=== PATIENT | male | born 1935 | race Caucasian/White ===

== ENCOUNTER 2016-07-05 07:17 | Inpatient (IN) | payer MEDICARE, OTHER ==
[2016-07-05] MEDS ORDERED: ceFAZolin 2 GM/50 ML 50 ML IV ONE (07:24)
[2016-07-05] MEDS ORDERED: LACTATED RINGERS 1,000 ML IV ONE ×3 (08:22→12:56)
[2016-07-05] MEDS ORDERED: NALBUPHINE 20 MG/ML AMP IVP PRN ×2 (09:08→15:26)
[2016-07-05] MEDS ORDERED: ONDANSETRON 4 MG/2 ML VIAL IVP PRN ×3 (09:08→15:26)
[2016-07-05] MEDS ORDERED: SUFENTA/BUPIV 0.4 MCG/0.0625% EPIDURAL 150 ML EP PRN (09:08)
[2016-07-05] MEDS ORDERED: diphenhydrAMINE INJ 50 MG/ML VIAL IVP PRN ×2 (09:08→15:26)
[2016-07-05] MEDS ORDERED: ePHEDrine 50 MG/ML AMP IVP ONE (09:30)
[2016-07-05] MEDS ORDERED: ROCURONIUM 50 MG/5 ML VIAL IVP ONE (09:30)
[2016-07-05] MEDS ORDERED: PHENYLEPHRINE 50 MG/5 ML VIAL IV ONE (09:30)
[2016-07-05] MEDS ORDERED: DEXAMETHASONE 4 MG/ML VIAL IVP ONE (09:30)
[2016-07-05] MEDS ORDERED: LIDOCAINE-MPF 2% 5 ML VIAL IM ONE (09:30)
[2016-07-05] MEDS ORDERED: SUCCINYLCHOLINE 200 MG/10 ML VIAL IVP ONE (09:30)
[2016-07-05] MEDS ORDERED: fentaNYL 100 MCG/2 ML VIAL IVP ONE (09:30)
[2016-07-05] MEDS ORDERED: ONDANSETRON 4 MG/2 ML VIAL IVP ONE (09:30)
[2016-07-05] MEDS ORDERED: MIDAZOLAM 2 MG/2 ML VIAL IVP ONE (09:30)
[2016-07-05] MEDS ORDERED: GLYCOPYRROLATE 1 MG/5 ML VIAL IVP ONE (09:30)
[2016-07-05] MEDS ORDERED: PROPOFOL 200 MG/20 ML VIAL IVP ONE (09:30)
[2016-07-05] MEDS ORDERED: SUFENTA/BUPIV 0.4 MCG/0.0625% 150 ML EP ONE (11:37)
[2016-07-05] MEDS ORDERED: IPRATROPIUM/ALBUTEROL 3 ML NEB INH ONE (12:37)
[2016-07-05] MEDS: fentaNYL 100 MCG/2 ML VIAL ONE ×2 (13:20→13:26)
[2016-07-05] MEDS ORDERED: KETOROLAC 15 MG/ML VIAL IVP PRN (15:26)
[2016-07-05] MEDS ORDERED: SODIUM CHLORIDE FLUSH 0.9% 10 ML SYRINGE IVP PRN (15:26)
[2016-07-05] MEDS: SODIUM CHLORIDE 0.9% 1,000 ML IV SCH (16:18)
[2016-07-05] MEDS: ceFAZolin 3 GM in SODIUM CHLORIDE 0.9% 100ML 100 ML IV SCH (16:28)
[2016-07-05] MEDS: SODIUM CHLORIDE FLUSH 0.9% 10 ML SYRINGE IVP SCH ×2 (16:29→23:09)
[2016-07-05] MEDS: SUFENTA/BUPIV 0.4 MCG/0.0625% EPIDURAL 150 ML EP PRN (19:13)
[2016-07-05] MEDS: FAMOTIDINE 20 MG/50 ML 50 ML IV SCH (23:08)
[2016-07-06] MEDS: ceFAZolin 3 GM in SODIUM CHLORIDE 0.9% 100ML 100 ML IV SCH (00:14)
[2016-07-06] MEDS: SODIUM CHLORIDE 0.9% 1,000 ML IV SCH ×3 (02:09→21:43)
[2016-07-06] MEDS: SUFENTA/BUPIV 0.4 MCG/0.0625% EPIDURAL 150 ML EP PRN ×3 (02:42→18:25)
[2016-07-06] MEDS: FAMOTIDINE 20 MG/50 ML 50 ML IV SCH ×2 (09:13→21:43)
[2016-07-06] MEDS ORDERED: KETOROLAC 15 MG/ML VIAL IVP PRN (16:31)
[2016-07-06] MEDS ORDERED: ONDANSETRON 4 MG/2 ML VIAL IVP PRN (16:31)
[2016-07-06] MEDS ORDERED: diphenhydrAMINE INJ 50 MG/ML VIAL IVP PRN (16:31)
[2016-07-06] MEDS ORDERED: SODIUM CHLORIDE FLUSH 0.9% 10 ML SYRINGE IVP PRN (16:31)
[2016-07-06] MEDS ORDERED: NALBUPHINE 20 MG/ML AMP IVP PRN (16:31)
[2016-07-06] MEDS: SODIUM CHLORIDE FLUSH 0.9% 10 ML SYRINGE IVP SCH (21:43)
[2016-07-07] MEDS: SUFENTA/BUPIV 0.4 MCG/0.0625% EPIDURAL 150 ML EP PRN ×3 (02:35→19:52)
[2016-07-07] MEDS: FAMOTIDINE 20 MG/50 ML 50 ML IV SCH ×2 (09:34→21:34)
[2016-07-07] MEDS: SODIUM CHLORIDE FLUSH 0.9% 10 ML SYRINGE IVP SCH ×3 (11:14→23:33)
[2016-07-07] MEDS: SODIUM CHLORIDE 0.9% 1,000 ML IV SCH (11:14)
[2016-07-07] MEDS ORDERED: ENOXAPARIN 40 MG/0.4 ML SYRINGE SUBQ ONE (14:00)
[2016-07-07] MEDS ORDERED: diltiaZEM INJ 5 MG/ML VIAL IVP SCH ×2 (20:54→23:50)
[2016-07-07] MEDS ORDERED: IOPAMIDOL-300 100 ML VIAL IVP ONE (22:38)
[2016-07-07] MEDS ORDERED: FUROSEMIDE 20 MG/2 ML VIAL IVP SCH (23:50)
[2016-07-07] MEDS ORDERED: AMIODARONE 150 MG/3 ML VIAL IVP SCH (23:50)
[2016-07-08] MEDS ORDERED: AMIODARONE 150 MG/100 ML 100 ML IV ONE (00:17)
[2016-07-08] MEDS ORDERED: NALBUPHINE 20 MG/ML AMP IVP PRN (01:18)
[2016-07-08] MEDS ORDERED: KETOROLAC 15 MG/ML VIAL IVP PRN (01:18)
[2016-07-08] MEDS ORDERED: diphenhydrAMINE INJ 50 MG/ML VIAL IVP PRN (01:18)
[2016-07-08] MEDS ORDERED: SODIUM CHLORIDE 0.9% 1,000 ML IV SCH (01:18)
[2016-07-08] MEDS ORDERED: AMIODARONE 150 MG/3 ML VIAL IVP STA (01:18)
[2016-07-08] MEDS ORDERED: AMIODARONE 360 MG/200 ML 200 ML IV ONE (02:18)
[2016-07-08] MEDS ORDERED: AMIODARONE 360 MG/200 ML 200 ML IV SCH (02:30)
[2016-07-08] MEDS: PROPRANOLOL 10 MG TABLET PO SCH ×3 (02:34→22:05)
[2016-07-08] MEDS ORDERED: MAGNESIUM SULFATE 1 GM in SODIUM CHLORIDE 0.9% 50 ML IV SCH (02:57)
[2016-07-08] MEDS: SUFENTA/BUPIV 0.4 MCG/0.0625% EPIDURAL 150 ML EP PRN ×2 (04:16→16:03)
[2016-07-08] MEDS: SODIUM CHLORIDE FLUSH 0.9% 10 ML SYRINGE IVP SCH ×3 (06:13→16:00)
[2016-07-08] MEDS ORDERED: AMIODARONE IV ONE (08:30)
[2016-07-08] MEDS ORDERED: DEXTROSE 5% IV ONE (08:30)
[2016-07-08] MEDS ORDERED: ENOXAPARIN 40 MG/0.4 ML SYRINGE SUBQ SCH (09:00)
[2016-07-08] MEDS: FUROSEMIDE 40 MG/4 ML VIAL IVP SCH ×2 (09:21→15:29)
[2016-07-08] MEDS: FAMOTIDINE 20 MG/50 ML 50 ML IV SCH ×2 (09:22→21:29)
[2016-07-08] MEDS: SODIUM CHLORIDE FLUSH 0.9% 10 ML SYRINGE IVP PRN ×3 (11:03→21:30)
[2016-07-08] MEDS: FINASTERIDE 5 MG TABLET PO SCH (11:14)
[2016-07-08] MEDS: amLODIPine 5 MG TABLET PO SCH ×2 (11:14→11:23)
[2016-07-08] MEDS: TAMSULOSIN 0.4 MG CAPSULE PO SCH (11:15)
[2016-07-08] MEDS: ONDANSETRON 4 MG/2 ML VIAL IVP PRN ×2 (11:34→15:59)
[2016-07-08] MEDS ORDERED: ENOXAPARIN 40 MG/0.4 ML SYRINGE SUBQ ONE (16:00)
[2016-07-08] MEDS ORDERED: ALBUTEROL NEB 2.5 MG/3 ML INH PRN (23:59)
[2016-07-09] MEDS: guaiFENesin/CODEINE 5 ML UDC PO PRN ×2 (00:24→08:35)
[2016-07-09] MEDS: SUFENTA/BUPIV 0.4 MCG/0.0625% EPIDURAL 150 ML EP PRN ×3 (02:23→23:02)
[2016-07-09] MEDS: AMIODARONE 200 MG TABLET PO SCH ×3 (02:48→12:04)
[2016-07-09] MEDS: FUROSEMIDE 40 MG/4 ML VIAL IVP SCH ×2 (04:41→14:26)
[2016-07-09] MEDS: SODIUM CHLORIDE FLUSH 0.9% 10 ML SYRINGE IVP SCH ×3 (04:42→21:42)
[2016-07-09] MEDS ORDERED: POTASSIUM CHLORIDE 20 MEQ TABLET PO ONE ×2 (06:51→09:00)
[2016-07-09] MEDS: ONDANSETRON 4 MG/2 ML VIAL IVP PRN ×2 (07:00→21:42)
[2016-07-09] MEDS: SODIUM CHLORIDE FLUSH 0.9% 10 ML SYRINGE IVP PRN (08:33)
[2016-07-09] MEDS: FAMOTIDINE 20 MG/50 ML 50 ML IV SCH ×2 (08:35→21:42)
[2016-07-09] MEDS: FINASTERIDE 5 MG TABLET PO SCH (08:43)
[2016-07-09] MEDS: TAMSULOSIN 0.4 MG CAPSULE PO SCH (08:43)
[2016-07-09] MEDS: amLODIPine 5 MG TABLET PO SCH (08:43)
[2016-07-09] MEDS: NEUTRA-PHOS 250 MG TABLET PO SCH ×2 (11:02→12:06)
[2016-07-09] MEDS ORDERED: HYDROcod/ACETAM 5/325 MG TABLET PO PRN (13:26)
[2016-07-09] MEDS: DOCUSATE SODIUM 100 MG CAPSULE PO SCH (21:50)
[2016-07-10] MEDS: guaiFENesin/CODEINE 5 ML UDC PO PRN (04:42)
[2016-07-10] MEDS: SODIUM CHLORIDE FLUSH 0.9% 10 ML SYRINGE IVP SCH ×3 (06:15→21:47)
[2016-07-10] MEDS: FUROSEMIDE 40 MG/4 ML VIAL IVP SCH ×2 (06:15→13:51)
[2016-07-10] MEDS: ONDANSETRON 4 MG/2 ML VIAL IVP PRN (07:56)
[2016-07-10] MEDS: amLODIPine 5 MG TABLET PO SCH (08:04)
[2016-07-10] MEDS: DOCUSATE SODIUM 100 MG CAPSULE PO SCH ×2 (08:05→21:18)
[2016-07-10] MEDS: FINASTERIDE 5 MG TABLET PO SCH (08:05)
[2016-07-10] MEDS: TAMSULOSIN 0.4 MG CAPSULE PO SCH (08:05)
[2016-07-10] MEDS: AMIODARONE 200 MG TABLET PO SCH ×3 (08:05→21:18)
[2016-07-10] MEDS: FAMOTIDINE 20 MG/50 ML 50 ML IV SCH ×2 (08:06→21:19)
[2016-07-10] MEDS ORDERED: POTASSIUM CHLORIDE 20 MEQ TABLET PO ONE (08:30)
[2016-07-10] MEDS ORDERED: ONDANSETRON 4 MG/2 ML VIAL IVP PRN (09:30)
[2016-07-10] MEDS ORDERED: HYDROmorphone 1 MG/ML SYRINGE IVP PRN (09:46)
[2016-07-10] MEDS ORDERED: SALINE ENEMA 133 ML BOTTLE RC ONE (10:00)
[2016-07-10] MEDS ORDERED: PROMETHAZINE INJ 12.5 MG in SODIUM CHLORIDE 0.9% 50 ML IV PRN (10:00)
[2016-07-10] MEDS: METOPROLOL 5 MG/5 ML VIAL IVP SCH ×3 (11:41→23:55)
[2016-07-11] MEDS ORDERED: POTASSIUM CHLORIDE 20 MEQ TABLET PO ONE (05:13)
[2016-07-11] MEDS: FUROSEMIDE 40 MG/4 ML VIAL IVP SCH ×2 (05:50→12:55)
[2016-07-11] MEDS: SODIUM CHLORIDE FLUSH 0.9% 10 ML SYRINGE IVP SCH ×3 (05:51→20:45)
[2016-07-11] MEDS: METOPROLOL 5 MG/5 ML VIAL IVP SCH ×2 (05:52→09:05)
[2016-07-11] MEDS: DOCUSATE SODIUM 100 MG CAPSULE PO SCH ×2 (09:03→20:45)
[2016-07-11] MEDS: AMIODARONE 200 MG TABLET PO SCH ×2 (09:03→20:46)
[2016-07-11] MEDS: FINASTERIDE 5 MG TABLET PO SCH (09:04)
[2016-07-11] MEDS: TAMSULOSIN 0.4 MG CAPSULE PO SCH (09:04)
[2016-07-11] MEDS: amLODIPine 5 MG TABLET PO SCH (09:04)
[2016-07-11] MEDS: CALCIUM CITRATE 250 MG TABLET PO SCH ×4 (09:04→20:46)
[2016-07-11] MEDS: FAMOTIDINE 20 MG/50 ML 50 ML IV SCH (09:05)
[2016-07-11] MEDS ORDERED: PROMETHAZINE INJ 12.5 MG in SODIUM CHLORIDE 0.9% 50 ML IV PRN (15:48)
[2016-07-11] MEDS ORDERED: guaiFENesin/CODEINE 5 ML UDC PO PRN (15:48)
[2016-07-11] MEDS ORDERED: SUFENTA/BUPIV 0.4 MCG/0.0625% EPIDURAL 150 ML EP PRN (15:48)
[2016-07-11] MEDS ORDERED: ONDANSETRON 4 MG/2 ML VIAL IVP PRN (15:48)
[2016-07-11] MEDS ORDERED: SODIUM CHLORIDE FLUSH 0.9% 10 ML SYRINGE IVP PRN (15:48)
[2016-07-11] MEDS ORDERED: ALBUTEROL NEB 2.5 MG/3 ML INH PRN (15:48)
[2016-07-11] MEDS ORDERED: HYDROmorphone 1 MG/ML SYRINGE IVP PRN (15:48)
[2016-07-11] MEDS ORDERED: diphenhydrAMINE INJ 50 MG/ML VIAL IVP PRN (15:48)
[2016-07-11] MEDS ORDERED: HYDROcod/ACETAM 5/325 MG TABLET PO PRN (15:48)
[2016-07-11] MEDS ORDERED: NALBUPHINE 20 MG/ML AMP IVP PRN (15:48)
[2016-07-11] MEDS ORDERED: METOPROLOL 5 MG/5 ML VIAL IVP SCH (18:00)
[2016-07-11] MEDS: METOPROLOL TARTRATE 25 MG TABLET PO SCH (20:51)
[2016-07-11] MEDS ORDERED: FAMOTIDINE 20 MG/50 ML 50 ML IV SCH (21:00)
[2016-07-12] MEDS: SODIUM CHLORIDE FLUSH 0.9% 10 ML SYRINGE IVP SCH (05:33)
[2016-07-12] MEDS ORDERED: FUROSEMIDE 40 MG/4 ML VIAL IVP SCH (06:00)
[2016-07-12] MEDS ORDERED: levoFLOXacin 250 MG TABLET PO SCH (09:00)
[2016-07-12] MEDS ORDERED: TAMSULOSIN 0.4 MG CAPSULE PO SCH (09:00)
[2016-07-12] MEDS ORDERED: FAMOTIDINE 20 MG TABLET PO SCH (09:00)
[2016-07-12] MEDS ORDERED: amLODIPine 5 MG TABLET PO SCH (09:00)
[2016-07-12] MEDS ORDERED: FINASTERIDE 5 MG TABLET PO SCH (09:00)
[2016-07-12] MEDS ORDERED: POTASSIUM CHLORIDE 20 MEQ TABLET PO SCH (09:00)
[2016-07-12] MEDS ORDERED: ENOXAPARIN 40 MG/0.4 ML SYRINGE SUBQ SCH (09:00)
[2016-07-12] MEDS: AMIODARONE 200 MG TABLET PO SCH (10:05)
[2016-07-12] MEDS: METOPROLOL TARTRATE 25 MG TABLET PO SCH (10:07)
[2016-07-12] MEDS: DOCUSATE SODIUM 100 MG CAPSULE PO SCH (10:12)
== END 2016-07-12 15:15 | disposition home or self-care (01) | DRG 353 ==
PROC: 0KNL0ZZ Release Left Abdomen Muscle, Open Approach (ICD-10-PCS; principal; 2016-07-05 08:15)
PROC: 0WUF0JZ Supplement Abdominal Wall with Synthetic Substitute, Open Approach (ICD-10-PCS; principal; 2016-07-05 08:15)
PROC: 0WPF0JZ Removal of Synthetic Substitute from Abdominal Wall, Open Approach (ICD-10-PCS; principal; 2016-07-05 08:15)
PROC: 0KNK0ZZ Release Right Abdomen Muscle, Open Approach (ICD-10-PCS; principal; 2016-07-05 08:15)
DX: K43.2 Incisional hernia without obstruction or gangrene (principal); J18.9 Pneumonia, unspecified organism; J95.89 Other postprocedural complications and disorders of respiratory system, not elsewhere classified; I97.89 Other postprocedural complications and disorders of the circulatory system, not elsewhere classified; J98.11 Atelectasis; J81.1 Chronic pulmonary edema; I48.91 Unspecified atrial fibrillation; I11.9 Hypertensive heart disease without heart failure; N20.0 Calculus of kidney; N40.0 Benign prostatic hyperplasia without lower urinary tract symptoms; Z87.442 Personal history of urinary calculi; Y83.8 Other surgical procedures as the cause of abnormal reaction of the patient, or of later complication, without mention of misadventure at the time of the procedure; Y92.230 Patient room in hospital as the place of occurrence of the external cause; Z79.82 Long term (current) use of aspirin; Z79.899 Other long term (current) drug therapy

== ENCOUNTER 2016-08-05 10:46 | Outpatient (CLI) | payer MEDICARE, OTHER | END 2016-08-05 10:47 | disposition home or self-care (01) | DX: I48.0 Paroxysmal atrial fibrillation (principal) ==

== ENCOUNTER 2017-02-01 12:11 | Outpatient (CLI) | payer MEDICARE, OTHER ==
--- NOTE | 2017-02-01 22:05 | MRI Report ---
MRI BRAIN WITHOUT CONTRAST EXAM DATE: 02/01/2017. INDICATION: 81-year-old male with increasing imbalance. Please assess. COMPARISON: Head CT 01/04/2014. TECHNIQUE: 1. T1 sagittal and fat-saturated T2 coronal. 2. Axial T1 MPRAGE, FLAIR, T2, T2* and DWI. FINDINGS: There is generalized cerebral and cerebellar volume loss with associated, ex vacuo ventriculomegaly. The volume loss has shown little if any interval progression when compared to previous head CT from [facility] 2013. The degree of volume loss is considered well within normal limits for stated age. There is a mild amount of white matter disease in the supratentorial brain manifested as focal and co nfluent T2 hyperintensities that are scattered throughout the periventricular, deep and subcortical w julieta matter bilaterally. A frontoparietal distribution predominates. Small T2 hyperintensities are al so seen in the posterior limbs of the external capsules bilaterally. Signal intensity of cortex and w julieta matter is otherwise unremarkable. Flow voids are demonstrated in the main intracranial arteries. No abnormal diffusion restriction is d emonstrated. No evidence of acute or chronic hemorrhage on T2* GRE sequence. No abnormal extra-axial fluid collection. No mass effect or midline shift. Limited assessment of the orbits reveals no obvious pathology. Mild mucosal thickening is seen scattered throughout the ethmoid air cells. The paranasal sinuses are otherwise clear. No significant mastoid or middle ear effusion is demonstrated. Marrow signal intensity in the regional skeletal structures is unremarkable. IMPRESSION: 1. Age-appropriate senescent change. 2. A mild amount of white matter disease is identified in the supratentorial brain as described. The findings are relatively nonspecific. However, this most likely represents chronic microangiopathy. 3. No other significant intracranial pathology is demonstrated on this unenhanced brain MRI. In parti cular, there is no evidence of infarction, hemorrhage, space-occupying mass lesion or other acute int racranial abnormality. Referring Provider Line: [phone] SITE ID: [id number]
== END 2017-02-01 12:12 | disposition home or self-care (01) ==
LOC: LAB 12:11
PROVIDERS: ATTEND Registered Nurse
DX: R26.89 Other abnormalities of gait and mobility (principal)
CPT/HCPCS: 70551

== ENCOUNTER 2017-02-25 15:00 | Outpatient (CLI) | payer MEDICARE, OTHER | END 2017-02-25 15:01 | disposition home or self-care (01) | LOC: SC 15:00 | PROVIDERS: ATTEND Specialist | DX: G47.30 Sleep apnea, unspecified (principal); G47.61 Periodic limb movement disorder; R06.83 Snoring | CPT/HCPCS: 99204; G0463; 99212 ==

== ENCOUNTER 2017-03-15 19:26 | Outpatient (CLI) | payer MEDICARE, OTHER | END 2017-03-15 19:27 | disposition home or self-care (01) | LOC: SC 19:26 | PROVIDERS: ATTEND Specialist | DX: G47.33 Obstructive sleep apnea (adult) (pediatric) (principal); G47.61 Periodic limb movement disorder | CPT/HCPCS: 95810 ==

== ENCOUNTER 2017-03-26 09:01 | Outpatient (CLI) | payer MEDICARE, OTHER ==
--- NOTE | 2017-03-26 11:01 | Ultrasound Report ---
REVISED: THIS REPORT WAS ORIGINALLY SIGNED ON 03/26/2017 @ 1109. EXAM CODE REVISED ON 04/10/2017. SCROTAL ULTRASOUND: 03/26/2017 HISTORY: Pain for one month. TECHNIQUE: Real-time scanning by the rotary operator with saved static images reviewed. COMPARISON: None. FINDINGS: Right side: Testicle 3.7 x 2.0 x 2.5 cm. There is one small focal peripheral linear cluster of 7-8 microcalcifications. No other microcalcifications are seen. Normal blood flow to the testicle. No solid mass. Minimal hydrocele without varicocele. Epididymis 0.8 x 0.6 x 0.8 cm containing a mildly complex 4 -mm cyst. Left side: Normal-appearing 4.2 x 2.2 x 2.5 cm testicle. Normal blood flow without hydrocele or varicocele. Epididymis 1.2 x 0.5 x.0.9 cm with two 3 mm cysts. IMPRESSION: ESSENTIALLY NEGATIVE SCROTAL ULTRASOUND. JOB #: [id number] EXT JOB #: [id number] [facility]
--- NOTE | 2017-03-26 11:16 | Ultrasound Report ---
RETROPERITONEAL ULTRASOUND: 03/26/2017 HISTORY: Pain with urination, right abdominal pain. History of lithotripsy and cholecystectomy. TECHNIQUE: Real-time scanning was performed with customer support representative static images obtained. FINDINGS: Right kidney: 10.1 cm longitudinally. Cortex 1.1 cm. Scattered renal stones are present, the large st in the inferior pole measuring 1.9 x 0.9 x 1.0 cm. No evidence of hydronephrosis, solid mass, or perinephric collection. Left kidney: 10.8 cm in length. Cortex 1.1 cm. Multiple cysts are present, the largest peripelvic 2.2 x 1.5 x 2.3 cm. No solid masses or obvious stones. Bladder: Bilateral ureteral jets are seen. Prevoid bladder volume 169 mL, postvoid 104 mL. The stephanie dder contains a prominent superior fold. Prostate: 4.4 x 3.5 x 4.4 cm, volume 35 mL. IMPRESSION: 1. RIGHT RENAL STONES WITHOUT OBSTRUCTION. 2. MULTIPLE LEFT RENAL CYSTS WITHOUT SOLID MASS. 3. A PROMINENT FOLD WITHIN THE URINARY BLADDER. MODERATELY LARGE POSTVOID RESIDUAL VOLUME. 4. MILD PROSTATE ENLARGEMENT. JOB #: [id number] EXT JOB #:[id number]
== END 2017-03-26 09:02 | disposition home or self-care (01) ==
LOC: DI 09:01
PROVIDERS: ATTEND Nurse Practitioner Family
DX: N20.0 Calculus of kidney (principal); Q61.02 Congenital multiple renal cysts; Q64.79 Other congenital malformations of bladder and urethra; N40.0 Benign prostatic hyperplasia without lower urinary tract symptoms; N50.82 Scrotal pain
CPT/HCPCS: 76770; 76870; 93975

== ENCOUNTER 2017-04-01 15:15 | Outpatient (CLI) | payer MEDICARE, OTHER | END 2017-04-01 15:16 | disposition home or self-care (01) | LOC: SC 15:15 | PROVIDERS: ATTEND Specialist | DX: G47.33 Obstructive sleep apnea (adult) (pediatric) (principal); G47.61 Periodic limb movement disorder | CPT/HCPCS: 99214; G0463; 99212 ==

== ENCOUNTER 2018-12-08 12:33 | Outpatient (CLI) | payer MEDICARE, OTHER ==
--- NOTE | 2018-12-08 13:29 | CT Report ---
Reason: FRACTURE OF ONE RIB, LEFT SIDE, INITIAL ENCTR Procedure Date: 12/08/2018 Accession Number: [id number] / [id number] Procedure: CT - CHEST WO CPT Code: FULL RESULT: EXAM: CT CHEST EXAM DATE: 12/08/2018 01:01 PM. CLINICAL HISTORY: Fracture of one rib, left side, initial encounter. COMPARISONS: CHEST ANGIO 07/07/2016 10:17 PM. TECHNIQUE: Routine helical CT imaging was performed through the chest. IV contrast: None. Reconstructions: Coronal and sagittal. In accordance with CT protocol optimization, one or more of the following dose reduction techniques were utilized for this exam: automated exposure control, adjustment of mA and/or KV based on patient size, or use of iterative reconstructive technique. FINDINGS: Lungs/Pleura: Lungs demonstrate lower lobe predominant bilateral subpleural scarring with interstitial thickening, bronchiectasis and honeycombing, fibrosis, these findings are progressed compared to 2017. Within posterior fine fibrosis is a 3 mm lung nodule image 52 of series 5. Mediastinum: Normal. No adenopathy or masses. The heart and great vessels are normal. Bones: Stable appearance of mild anterior wedge compression fracture of T7. There is a minimally displaced lateral 10th rib fracture with no additional displaced fractures detected. There are questionable nondisplaced buckle fractures of the posterior 12th rib as seen on image 97 series 5 and posterior 11th rib as seen on image 95. Visualized Abdomen: Bilateral nonobstructing renal calculi, up to 0.8 cm on the right and up to 0.5 cm on the left as visualized. Other: None. IMPRESSION: Minimally displaced lateral left 10th rib fracture. There are questionable subtle buckle deformities of the adjacent 11th and 12th ribs with no additional displaced rib fractures detected. Lower lobe predominant fibrotic lung disease with honeycombing, UIP pattern progression compared to 2017. RADIA
== END 2018-12-08 12:34 | disposition home or self-care (01) ==
LOC: DI 12:33
PROVIDERS: ATTEND Nurse Practitioner Family
DX: S22.32XA Fracture of one rib, left side, initial encounter for closed fracture (principal); J84.10 Pulmonary fibrosis, unspecified
CPT/HCPCS: 71250

== ENCOUNTER 2018-12-18 12:37 | Outpatient (CLI) | payer MEDICARE, OTHER ==
--- NOTE | 2018-12-18 14:06 | XRAY Report ---
Reason: FRACTURE OF 1 RIB, LEFT SIDE, INITIAL ENCTR Procedure Date: 12/18/2018 Accession Number: [id number] / [id number] Procedure: XR - Ribs w/PA Chest LT CPT Code: FULL RESULT: EXAM: LEFT RIB RADIOGRAPHY EXAM DATE: 12/18/2018 01:06 PM. CLINICAL HISTORY: Left chest wall pain. Possible fracture. Initial encounter COMPARISON: CHEST 1 VIEW 07/11/2016 5:05 AM. TECHNIQUE: 1 view of the chest and 2 views of the ribs. FINDINGS: Bones: There is a nondisplaced fracture of the anterior lateral left 11th rib. Lungs: Mild bilateral basilar interstitial process. Sounds are clear. No acute opacity. Mediastinum: Heart and mediastinal contours are unremarkable. Other: None. IMPRESSION: 1. Acute nondisplaced fracture left 11th rib. 2. Mild bilateral interstitial fibrosis. 3. No acute cardiopulmonary abnormality. RADIA
== END 2018-12-18 12:38 | disposition home or self-care (01) ==
LOC: DI 12:37
PROVIDERS: ATTEND Nurse Practitioner Family
DX: S22.32XA Fracture of one rib, left side, initial encounter for closed fracture (principal); J84.10 Pulmonary fibrosis, unspecified

== ENCOUNTER 2019-02-09 13:12 | Outpatient (CLI) | payer MEDICARE, OTHER ==
--- NOTE | 2019-02-11 00:25 | XRAY Report ---
Reason: FRACTURE OF RIB Procedure Date: 02/09/2019 Accession Number: [id number] / [id number] Procedure: XRS - Chest 2 View X-Ray CPT Code: 93952 FULL RESULT: EXAM: CHEST RADIOGRAPHY EXAM DATE: 02/09/2019 01:32 PM. CLINICAL HISTORY: Chest pain. Previously documented left rib fracture. COMPARISON: RIBS W/PA CHEST LT 12/18/2018 12:53 PM. TECHNIQUE: 2 views. FINDINGS: Lungs/Pleura: Patchy bibasilar atelectatic changes seen. No pneumothorax present. No gross consolidation seen. Mediastinum: Heart and mediastinal contours are unremarkable. Other: Stable appearance of left 11th rib fracture. IMPRESSION: 1. Patchy bibasilar atelectatic changes without pneumothorax nor consolidation. 2. Stable appearance of left 11th rib fracture. RADIA
== END 2019-02-09 13:13 | disposition home or self-care (01) ==
LOC: DI.S 13:12
PROVIDERS: ATTEND Nurse Practitioner Family
DX: S22.32XA Fracture of one rib, left side, initial encounter for closed fracture (principal); J98.11 Atelectasis
CPT/HCPCS: 71046

== ENCOUNTER 2020-10-30 10:52 | Outpatient (CLI) | payer MEDICARE, OTHER ==
--- NOTE | 2020-10-30 17:36 | CT Report ---
PROCEDURE: CHEST WO INDICATIONS: RHEUMATOID LUNG DISEASE, RA, HIGH RISK MEDS USE TECHNIQUE: Noncontrast 5 mm thick sections acquired from the pulmonary apices to the posterior costophrenic angl es. 7 mm thick coronal and sagittal MIP reformats were then acquired. For radiation dose reduction, the following was used: automated exposure control, adjustment of mA and/or kV according to patient size. COMPARISON: FINDINGS: Image quality: Excellent. Lungs and pleura: No acute air space opacities are seen that would suggest presence of active inflam mation. There is a stable appearance of "honeycomb lung" at the periphery of the lung bases as was pr eviously the case in December [address] scanning. No pleural effusions or pneumothorax. Central and pe ripheral airways are patent and normal in caliber, and there is a mild degree of peribronchial soft t issue prominence consistent with chronic bronchitis in this patient. This also has not appreciably wo rsened.. Mediastinum: Heart size is normal. No pericardial effusion. No mediastinal adenopathy by size crit eria. Thoracic aorta and central pulmonary arteries are normal in size. Esophagus is normal in tika dank. No hiatal hernia. Bones and chest wall: No suspicious bony lesions. No vertebral body compression fractures. No axil zuleima or supraclavicular adenopathy by size criteria. The thyroid is normal in size. Abdomen: Visualized upper abdominal solid organs and bowel loops appear normal in the absence of con trast. IMPRESSION: Chronic mild to moderate pulmonary fibrotic change across the periphery of the lung bases, previously also present in [address] scanning. A prior active alveolitis pattern was present on that prior CT scanning, mild in severity, and this has resolved. No acute disease. Reviewed by: Hayden Ying MD on 10/30/2020 5:34 PM PDT Approved by: Hayden Ying MD on 10/30/2020 5:34 PM PDT Station ID: [id number]
== END 2020-10-30 10:53 | disposition home or self-care (01) ==
LOC: DI 10:52
PROVIDERS: ATTEND Internal Medicine
DX: R91.8 Other nonspecific abnormal finding of lung field (principal)

== ENCOUNTER 2020-12-01 10:55 | Outpatient (CLI) | payer MEDICARE, OTHER ==
[2020-12-01 11:18] LABS: BASOPHILS # (AUTO) 0.1 10^3/uL (0.0-0.1); BASOPHILS % (AUTO) 0.7 %; EOSINOPHILS # (AUTO) 0.4 10^3/uL (0.0-0.7); EOSINOPHILS % (AUTO) 5.8 %; HCT - HEMATOCRIT 41.3 % (42.0-52.0); HGB - HEMOGLOBIN 14.6 g/dL (14.0-18.0); LYMPHOCYTES # (AUTO) 1.4 10^3/uL (1.5-3.5); LYMPHOCYTES % (AUTO) 20.5 %; MEAN CORPUSCULAR HEMOGLOBIN 33.8 pg (27.0-31.0); MEAN CORPUSCULAR HGB CONC 35.4 g/dL (32.0-36.0); MEAN CORPUSCULAR VOLUME 95.6 fL (80.0-94.0); MEAN PLATELET VOLUME 8.7 fL (7.4-11.4); MONOCYTES # (AUTO) 0.7 10^3/uL (0.0-1.0); MONOCYTES % (AUTO) 10.6 %; NEUTROPHILS # (AUTO) 4.2 10^3/uL (1.5-6.6); NEUTROPHILS % (AUTO) 62.1 %; PLT - PLATELET COUNT 272 10^3/uL (130-450); RED BLOOD COUNT 4.32 10^6/uL (4.70-6.10); RED CELL DISTRIBUTION WIDTH 13.8 % (12.0-15.0); WHITE BLOOD COUNT 6.8 x10^3/uL (4.8-10.8)
[2020-12-01 11:39] LABS: ALBUMIN 3.8 g/dL (3.2-5.5); BILIRUBIN,TOTAL 0.9 mg/dL (0.2-1.0); CALCIUM 8.9 mg/dL (8.5-10.3); CREATININE 1.1 mg/dL (0.6-1.2); POTASSIUM 3.7 mmol/L (3.5-5.0); TOTAL PROTEIN 7.5 g/dL (6.7-8.2)
== END 2020-12-01 10:56 | disposition home or self-care (01) ==
LOC: LAB 10:55
PROVIDERS: ATTEND Internal Medicine
DX: M05.10 Rheumatoid lung disease with rheumatoid arthritis of unspecified site (principal); Z79.899 Other long term (current) drug therapy; Z51.81 Encounter for therapeutic drug level monitoring
CPT/HCPCS: 36415; 80053; 85025

== ENCOUNTER 2021-12-22 17:13 | Emergency (ER) | payer MEDICARE, OTHER ==
[2021-12-22] MEDS ORDERED: SODIUM CHLORIDE 0.9% 1,000 ML IV STA (17:40)
[2021-12-22] MEDS ORDERED: fentaNYL 100 MCG/2 ML VIAL IVP STA (17:40)
[2021-12-22 17:45] LABS: BASOPHILS # (AUTO) 0.1 10^3/uL (0.0-0.1); BASOPHILS % (AUTO) 0.6 %; EOSINOPHILS # (AUTO) 0.5 10^3/uL (0.0-0.7); EOSINOPHILS % (AUTO) 6.7 %; HCT - HEMATOCRIT 45.2 % (42.0-52.0); HGB - HEMOGLOBIN 15.9 g/dL (14.0-18.0); LYMPHOCYTES # (AUTO) 1.5 10^3/uL (1.5-3.5); LYMPHOCYTES % (AUTO) 18.2 %; MEAN CORPUSCULAR HEMOGLOBIN 33.3 pg (27.0-31.0); MEAN CORPUSCULAR HGB CONC 35.2 g/dL (32.0-36.0); MEAN CORPUSCULAR VOLUME 94.8 fL (80.0-94.0); MEAN PLATELET VOLUME 9.1 fL (7.4-11.4); MONOCYTES # (AUTO) 0.7 10^3/uL (0.0-1.0); MONOCYTES % (AUTO) 8.7 %; NEUTROPHILS # (AUTO) 5.2 10^3/uL (1.5-6.6); NEUTROPHILS % (AUTO) 65.5 %; PLT - PLATELET COUNT 280 10^3/uL (130-450); RED BLOOD COUNT 4.77 10^6/uL (4.70-6.10); RED CELL DISTRIBUTION WIDTH 13.1 % (12.0-15.0)
[2021-12-22] MEDS ORDERED: hydrALAZINE INJ 20 MG/ML VIAL IVP STA ×2 (17:47→18:36)
--- NOTE | 2021-12-22 17:49 | ED Physician Documentation ---
History of Present Illness - Stated complaint Stated Complaint: URINATING BLOOD/PX/NAUSEA - Chief complaint Chief Complaint: Abd Pain - Additonal information Additional information: 86-year-old male presents emergency department for evaluation of acute right flank pain as well as hematuria. Symptoms began this afternoon. He has had no fevers or vomiting. No melena or hematochezia. He is not on blood thinners. He does have a remote history of renal colic for which he had a urological procedure many years ago though the family cannot remember the details of such. Patient does present modestly hypertensive. He is denying any chest pain or shortness of air. He does have a history of hypertension Review of Systems Constitutional: denies: Fever, Chills Ears: reports: Reviewed and negative Nose: reports: Reviewed and negative Throat: reports: Reviewed and negative Cardiac: reports: Reviewed and negative GI: reports: Abdominal Pain : reports: Hematuria Skin: reports: Rash, Lesions Musculoskeletal: reports: Neck pain, Back pain PD PAST MEDICAL HISTORY - Past Medical History Cardiovascular: Hypertension, Angina Respiratory: None Endocrine/Autoimmune: None GI: GERD, Ulcers, Colon polyps : Benign prostate hypertrophy, Kidney stones, Other HEENT: None Psych: None Musculoskeletal: Osteoarthritis, Rheumatoid arthritis Derm: None - Past Surgical History Past Surgical History: Yes General: Cholecystectomy, Colonoscopy, Other - Present Medications Home Medications: Ambulatory Orders Medication Instructions Recorded Confirmed Amlodipine Besylate 5 mg PO DAILY 08/13/13 12/22/21 Aspirin Chewable [[place] 81 mg PO DAILY 08/13/13 12/22/21 Aspirin] Triamterene/Hydrochlorothiazid 1 each PO DAILY 08/13/13 12/22/21 [Triamterene-Hctz 37.5-25 mg Tb] Gabapentin 400 mg PO QPM 06/24/16 12/22/21 Calcium Carbonate/Vitamin D3 2 tab PO DAILY 07/05/16 12/22/21 [Calcium 500-Vit D3 200 Tablet] Amlodipine Besylate [Norvasc] 10 mg PO DAILY #30 tablet 12/22/21 Brimonidine 0.2% Ophth Drops 1 drops EACHEYE BID 12/22/21 12/22/21 [Alphagan P 0.2% Ophth Drops] DULoxetine [Cymbalta] 30 mg PO DAILY 12/22/21 12/22/21 Hydroxychloroquine [Plaquenil] 200 mg PO DAILY 12/22/21 12/22/21 [place]-3 Fatty Acids/Fish Oil 1 cap ORAL DAILY 12/22/21 12/22/21 [[place]-3 Fish Oil 1,000 mg Sfgl] oxyCODONE [Roxicodone] 5 mg PO TID PRN #15 tablet 12/22/21 - Allergies Allergies/Adverse Reactions: Allergies Allergy/AdvReac Type Severity Reaction Status Date / Time No Known Drug Allergies Allergy Verified 03/03/15 15:10 - Social History Does the pt smoke?: No Smoking Status: Never smoker Does the pt drink ETOH?: No PD ED PE NORMAL - General General: Alert and oriented X 3, No acute distress, Well developed/nourished - HEENT HEENT: Atraumatic, Moist mucous membranes - Neck Neck: Supple, no meningeal sign, No adenopathy - Cardiac Cardiac: RRR, No murmur - Respiratory Respiratory: No respiratory distress, Clear bilaterally - Abdomen Abdomen: Normal bowel sounds, Soft, Non tender (Right flank pain without guarding or rebound. No CVA tenderness.) - Back Back: No CVA TTP, No spinal TTP - Derm Derm: Normal color, Warm and dry, No rash - Extremities Extremities: No deformity - Neuro Neuro: Alert and oriented X 3, criminal attorney 2-12 intact Eye Opening: Spontaneous Motor: Obeys Commands Verbal: Oriented GCS Score: 15 Results - Vitals Vitals: Vital Signs - 24 hr 12/22/21 12/22/21 12/22/21 17:26 17:46 18:05 Temperature 36.4 C L Heart Rate 86 81 78 Respiratory 20 28 H 18 Rate Blood Pressure 232/132 H 203/137 H 213/123 H O2 Saturation 97 99 95 12/22/21 12/22/21 12/22/21 18:15 18:40 19:09 Temperature Heart Rate 87 79 87 Respiratory 26 H 25 H 24 Rate Blood Pressure 210/124 H 213/118 H 197/113 H O2 Saturation 97 98 97 12/22/21 19:30 Temperature Heart Rate 89 Respiratory 20 Rate Blood Pressure 166/97 H O2 Saturation 98 Oxygen O2 Source [] Nasal cannula O2 Source Room air - Labs Labs: Laboratory Tests 12/22/21 12/22/21 12/22/21 17:35 17:35 18:30 WBC 8.0 RBC 4.77 Hgb 15.9 Hct 45.2 MCV 94.8 H MCH 33.3 H MCHC 35.2 RDW 13.1 Plt Count 280 MPV 9.1 Neut # (Auto) 5.2 Lymph # (Auto) 1.5 Stone # (Auto) 0.7 Eos # (Auto) 0.5 Baso # (Auto) 0.1 Absolute Nucleated RBC 0.00 Nucleated RBC % 0.0 Sodium 140 Potassium 3.2 L Chloride 102 Carbon Dioxide 27 Anion Gap 11.0 BUN 17 Creatinine 1.1 Estimated GFR (MDRD) 63 L Glucose 110 H Calcium 9.5 Total Bilirubin 0.9 AST 20 ALT 19 Alkaline Phosphatase 45 Total Protein 8.2 Albumin 4.0 Globulin 4.2 Albumin/Globulin Ratio 1.0 Lipase 33 Urine Color RED/BLOODY Urine Clarity BLOODY Urine pH 7.5 Ur Specific [place] 1.020 Urine Protein 100 H Urine Glucose (UA) NEGATIVE Urine Ketones 15 H Urine Occult Blood LARGE H Urine Nitrite NEGATIVE Urine Bilirubin NEGATIVE Urine Urobilinogen 1 (NORMAL) Ur Leukocyte Esterase TRACE H Urine RBC TNTC H Urine WBC 0-3 Ur Squamous Epith Cells NONE SEEN Urine Bacteria None Seen Ur Microscopic Review INDICATED Urine Culture Comments INDICATED - Rads (name of study) CT abd w/o Radiology: Final report received (Moderate right renal hydronephrosis without obstructing lesion. Hypodensity in the renal collecting system may reflect hematuria. Consider follow-up CT with contrast for further evaluation. Bilateral nonobstructing calculi greater on the right. Suprarenal aortic aneurysm) PD MEDICAL DECISION MAKING - ED course Complexity details: reviewed results, re-evaluated patient, considered differential, d/w patient, d/w family ED course: This is a well-appearing 86-year-old male the presents emergency department for evaluation of acute right flank pain and hematuria. He does have a known hist ory of renal colic in the past. He has a history of hypertension which is typically well controlled on amlodipine, He admits to not having taking his amlodipine for a few months as he ran out and did not request a refill. He does present very hypertensive with a systolic greater than 200 and a diastolic over 110. He is denying any chest pain or shortness of air. Screening CBC and electrolytes were without acute worrisome findings. His urine did show a large amount of gross hematuria but no secondary signs of infection. Subsequently a CT scan was performed and we do find multiple infrarenal calculi right greater than left. He does have some right-sided hydro nephrosis but no obvious obstructing stones. We suspect that he likely was passing a stone as the cause for the flank pain and hematuria. There is an incidental new finding of a suprarenal aortic aneurysm measuring just over 3.2 cm. This is new in comparison to previously seen imaging as late as 2019. Given the markedly elevated blood pressure on presentation he was administered 15 mg of hydralazine here in the emergency department as well as 10 mg of his amlodipine. On reevaluation his blood pressure is decreased to 166/87. He is denying chest pain back pain or shortness of air. His amlodipine prescription will be renewed today. I discussed the findings of the hydronephrosis renal stones as well as supra maxwell al aneurysm with the patient and his . They will request referral to urology and vascular surgery through primary care provider. Limited prescription for oxycodone is going to be sent for pain. I am prescribing a short course of short-acting opioid pain medication for this patient. I have reviewed the patients SOFTWARE CONSULTANT and no concerning findings were noted. I have discussed that the opioids are for short term therapy only, and will not be refilled from the ED. Departure - Departure Disposition: 01 Home, Self Care Clinical Impression: Hydronephrosis of right kidney, Renal stones Aortic aneurysm Qualifiers: Aortic location: abdominal aorta Presence of rupture: without rupture Qualified Code(s): I71.4 - Abdominal aortic aneurysm, without rupture Hypertension Qualifiers: Hypertension type: primary hypertension Qualified Code(s): I10 - Essential (primary) hypertension Hematuria Qualifiers: Hematuria type: gross Qualified Code(s): R31.0 - Gross hematuria Instructions: Aneurysm Abdominal Aortic Follow-Up: Kerri Camarillo ARNP [Primary Care Provider] - Prescriptions: Amlodipine Besylate [Norvasc] 10 mg PO DAILY #30 tablet oxyCODONE [Roxicodone] 5 mg PO TID PRN #15 tablet PRN Reason: Pain Comments: Talon you are seen today in the emergency department for pain on the right side of your abdomen as well as blood in your urine. The CT scan shows multiple stones in both your kidneys though right greater than left. You do have swelling of the right kidney. However we do not see any obvious obstructing stones in your ureters. We suspect that the swelling in the kidney and the bloody urine is due to the passage of a recent stone. There is an incidental finding of a 3.2 cm suprarenal aortic aneurysm. Today on presentation to the emergency department your blood pressure was very elevated. You admitted that you have likely been out of your amlodipine for a few months. I have refilled that today. With the diagnosis of a new aneurysm it is important that you maintain good blood pressure control. It is important that you discuss this ED visit with Lin Camarillo your primary provider. She should make a referral for you to a urologist for longer-term evaluation and management of your kidney stones and your bloody urine. She should also make a referral for you to vascular surgery for longer-term evaluation and management of this aortic aneurysm. If at any point you develop worsening symptoms, have back pain, fainting episodes, are unable to urinate, develop fevers or have uncontrolled vomiting or chest pain then please return immediately to the ER for second evaluation. I am prescribing a short course of narcotic pain medication for you. These are potentially dangerous and addictive medications that should be used carefully. These medications may constipate you. Take an xedp-pkk-pevlhnl stool softener (docusate) twice daily with plenty of water while taking these medications. If you go 24 hours without a bowel movement, take qaln-kda-vbsptpj miralax, per package instructions. Do not drink or drive while taking these medications. If you received narcotic or sedating medications while in the emergency department, do not drive for 24 hours. Store this medication in a safe, secure place and out of reach of children. It is a violation of federal law to give or sell this medication to another person or to use in a manner other than prescribed. The ED will not refill narcotic prescriptions, including prescriptions lost or stolen. To dispose of unwanted medications: 1. [facility] at [address] in [place] has a medication drop box. They accept prescription medications (in pill form) Friday through Friday 9:00 a.m. to 5:00 p.m. 2. The [facility] [employer] accepts prescription medications (in pill form only) for disposal year round. Call for more information. 3. Contact the [facility] for the next [facility] sponsored prescription drug collection event. , [phone], or [phone]; Note that many narcotic pain relievers also contain Tylenol/acetaminophen. Please ensure that your total dose of acetaminophen from all sources does not exceed 3 g (3000 mg) per day. [facility] in [place]
[2021-12-22 17:58] LABS: BILIRUBIN,TOTAL 0.9 mg/dL (0.2-1.0); CALCIUM 9.5 mg/dL (8.5-10.3); CREATININE 1.1 mg/dL (0.6-1.2); POTASSIUM 3.2 mmol/L (3.5-5.0); TOTAL PROTEIN 8.2 g/dL (6.7-8.2)
--- NOTE | 2021-12-22 18:20 | CT Report ---
PROCEDURE: CT abdomen pelvis without contrast INDICATIONS: hematuria; left flank pain TECHNIQUE: Noncontrast 5 mm thick sections acquired from the diaphragms to the symphysis. 5 mm coronal and sagi ttal reformats were then performed. For radiation dose reduction, the following was used: automated exposure control, adjustment of mA and/or kV according to patient size. COMPARISON: December 01, 2014 FINDINGS: Image quality: Excellent. ABDOMEN: Lung bases: Bibasilar peripheral pulmonary fibrosis noted without acute finding. Heart size is enlarg ed. Solid organs: Liver and spleen are normal in size. Gallbladder surgically absent. Pancreas is norm al in contours. No adrenal nodules. Right renal nonobstructive multiple calculi measure up to 6 mm. There is dass-kf-bxnimeyk hydronephro sis and hyperdensity in the area renal pelvis without evidence of obstructing lesion. The ureters are decompressed. Several low-density lesions structures present in the left kidney including peripelvic cyst Peritoneum and bowel: Unenhanced bowel loops demonstrate normal wall thickness and caliber. No free fluid or air. Nodes and vessels: No retroperitoneal or mesenteric adenopathy by size criteria. Aorta and inferior vena cava are normal in caliber. Suprarenal abdominal aortic aneurysm measures up to 3.2 cm Miscellaneous: No ventral hernias. PELVIS: Genitourinary: Bladder wall thickness is normal. Miscellaneous: Bilateral inguinal hernias containing fat Bones: No suspicious bony lesions. No vertebral body compression fractures. Degenerative disc dise ase and arthropathy noted lower lumbar spine IMPRESSION: 1. Moderate right renal hydronephrosis without obstructing lesion. Differential possibilities include isodense stone or lesion, and recently passed stone. Hyperdensity in the renal collecting system may reflect hematuria. Consider follow-up CT with contrast for further evaluation. 2. Bilateral nonobstructing calculi greater on the right. 3. Indeterminant left renal hypodensities could also be further evaluated with contrast CT and/or ult rasound 4. Suprarenal aortic aneurysm Reviewed by: Mario Alberto Valencia MD on 12/22/2021 5:19 PM AKDT Approved by: Mario Alberto Valencia MD on 12/22/2021 5:19 PM AKDT Station ID: [id number]
[2021-12-22 18:48] LABS: BILIRUBIN,URINE NEGATIVE (NEGATIVE); GLUCOSE, URINE (UA) NEGATIVE (NEGATIVE); KETONES,URINE (UA) 15 mg/dL (NEGATIVE); LEUKOCYTE ESTERASE, URINE TRACE (NEGATIVE); NITRITE,URINE NEGATIVE (NEGATIVE); OCCULT BLOOD,URINE LARGE (NEGATIVE); PH,URINE 7.5 PH (5.0-7.5); PROTEIN,URINE 100 mg/dL (NEGATIVE); UROBILINOGEN,URINE 1 (NORMAL) E.U./dL (NORMAL)
[2021-12-22] MEDS ORDERED: KETOROLAC 30 MG/ML VIAL IVP STA (18:49)
[2021-12-22] MEDS ORDERED: amLODIPine 5 MG TABLET PO STA (18:49)
[2021-12-22 18:51] LABS: CLARITY,URINE BLOODY (CLEAR); RBC,URINE TNTC /HPF (0-5); SQUAMOUS EPITHELIAL CELL,UR NONE SEEN (<= Few); WBC,URINE 0-3 /HPF (0-3)
[2021-12-22 18:52] LABS: BACTERIA,URINE None Seen /HPF (None Seen)
[2021-12-22 20:45] VITALS: BP 177/106
== END 2021-12-22 20:47 | disposition home or self-care (01) ==
LOC: ED 17:13
DX: N13.30 Unspecified hydronephrosis (principal); N20.0 Calculus of kidney; I10 Essential (primary) hypertension; I71.4 Abdominal aortic aneurysm, without rupture; R31.0 Gross hematuria
CPT/HCPCS: 36415; 74176; 80053; 81001; 83690; 85025; 87086; 96374; 96375; 96376; 99283; 99284; A9270; 81003

== ENCOUNTER 2022-04-22 11:29 | Outpatient (CLI) | payer MEDICARE ==
[2022-04-22] MEDS ORDERED: iohexoL-300 100 ML VIAL ONE (12:38)
--- NOTE | 2022-04-22 17:52 | CT Report ---
PROCEDURE: ANGIO ABDOMEN/PELVIS W INDICATIONS: SUPARENAL ARTERY ANEURYSM CONTRAST: 100ml Omnipaque 300 TECHNIQUE: After the administration of intravenous contrast, 2.5 mm thick sections acquired from the diaphragm t o the symphysis. 10 mm maximum-intensity projection (MIP) reformats were then acquired. For radiati on dose reduction, the following was used: automated exposure control, adjustment of mA and/or kV ac cording to patient size. COMPARISON: CT abdomen and pelvis without contrast dated 12/22/2021 FINDINGS: Image quality: Excellent. Aorta: There is a suprarenal abdominal aortic aneurysm, which at the level of the SMA measures appro ximately 3.5 x 3.4 cm. The infrarenal abdominal aorta is ectatic but not frankly aneurysmal. The SMA and celiac and SORAYA and left renal artery are patent. There is a moderate origin stenosis of the right renal artery. Mesenteric arteries: Celiac trunk, superior and inferior mesenteric arteries appear patent. Right pelvic arteries: Ectatic. Mild common iliac artery stenotic disease. External iliac is patent. Left pelvic arteries: Ectatic, patent Extravascular soft tissues: Lung bases are clear. Heart size is normal. Liver and spleen are jewel l in size and enhancement. There are numerous nonobstructing right renal stones. There are some small nonobstructing left renal stones. No hydronephrosis or hydroureter. Gallbladder is surgically absent . Biliary system is non dilated. There is a 7 mm low-density lesion in the proximal body of the oviedo creas, possibly IPMN. Pancreas otherwise enhances normally. No adrenal nodules. Kidneys are normal in size and enhancement, without hydronephrosis. Non opacified bowel loops are normal in wall thickn ess and caliber. No free fluid or air. No retroperitoneal or mesenteric adenopathy. No ventral her nias. No suspicious bony lesions. No vertebral body compression fractures. Lumbar degenerative richard nge. Fat-containing left inguinal hernia. IMPRESSION: 1. Mild suprarenal abdominal aortic aneurysm. 2. Moderate origin stenosis of the right renal artery. 3. Numerous nonobstructing right renal stones. Multiple small nonocclusive left renal stones. 4. Probable 7 mm IPMN of the pancreas. Comment: Consider follow-up CT to evaluate the pancreatic lesion in 12 months. Reviewed by: Nba Garcia MD on 04/22/2022 5:51 PM PDT Approved by: Nba Garcia MD on 04/22/2022 5:51 PM PDT Station ID: [id number]
--- NOTE | 2022-04-22 17:58 | CT Report ---
PROCEDURE: ANGIO CHEST W/WO INDICATIONS: SUPARENAL ARTERY ANEURYSM CONTRAST: 100ml Omnipaque 300 TECHNIQUE: After the administration of intravenous contrast, 2 mm axial images were acquired from the pulmonary apices to the posterior costophrenic angles during the arterial phase. In addition, 1 mm lung kernel and 5 mm soft tissue kernel reconstructions were performed. 3-dimensional coronal oblique maximum int ensity projection (MIP) reformats, 8 mm axial MIP, and 5 mm coronal and sagittal MPR reformats were t hen performed through the thorax. For radiation dose reduction, the following was used: automated exp osure control, adjustment of mA and/or kV according to patient size. COMPARISON: Noncontrast chest CT dated 10/30/2020, CT angiogram of the abdomen and pelvis from today. FINDINGS: Image quality: Excellent. Pulmonary arteries: Pulmonary arteries are normal in size, and demonstrate no intraluminal filling d efects to suggest central pulmonary embolism. Aorta and its attachments: There is mild aneurysmal dilatation of the ascending aorta, measuring 4.1 cm. There is classic three-vessel arch anatomy. Great vessel origins are patent. There are no dissect ions of the aorta. There is shaggy predominantly noncalcified plaque in the descending thoracic aorta . The descending thoracic aorta is ectatic but not aneurysmal. There is mild aneurysmal dilatation of the suprarenal abdominal aorta, measuring 3.5 cm maximum diameter. Lungs and pleura: Again noted is chronic interstitial pulmonary fibrosis with bibasilar honeycombing. No acute pulmonary infiltrates. No pleural effusions or pneumothorax. Central and peripheral airways are patent. Mediastinum: Heart size is mildly enlarged, with enlargement of the right ventricle,, without perica rdial effusion. No mediastinal or hilar adenopathy. Thoracic aorta is normal in caliber and enhance ment. Esophagus is normal in caliber, without hiatal hernia. Bones and chest wall: No suspicious bony lesions. Old mid thoracic compression. Ribs and thoracic s pine appear intact throughout. No axillary or supraclavicular adenopathy. Thyroid is grossly unrema rkable. Abdomen: Visualized upper abdominal solid organs appear normal in the early arterial phase of enhanc ement. Renal stones are noted. IMPRESSION: 1. Mild aneurysmal dilatation of the ascending aorta, measuring 4.1 cm. 2. Shaggy plaque in the descending thoracic aorta. 3. Mild suprarenal abdominal aortic aneurysm. 4. Chronic pulmonary interstitial fibrosis with bibasilar honeycombing. CLINICAL RECOMMENDATION STATEMENTS: In patients <35 years with an ITN detected on CT, MRI, or extrathyroidal ultrasound, the Committee re commends further evaluation with dedicated thyroid ultrasound if the nodule is "e1 cm and has no susp icious imaging features, and if the patient has normal life expectancy. In patients "e35 years with an ITN detected on CT, MRI, or extrathyroidal ultrasound, the Committee r ecommends further evaluation with dedicated thyroid ultrasound if the nodule is "e1.5 cm and has no s uspicious imaging features, and if the patient has normal life expectancy. (ACR, 2014) Reviewed by: Nba Garcia MD on 04/22/2022 5:57 PM PDT Approved by: Nba Garcia MD on 04/22/2022 5:57 PM PDT Station ID: [id number]
[2022-04-22] MEDS ORDERED: iohexoL-300 100 ML VIAL IVP ONE (18:23)
== END 2022-04-22 11:30 | disposition home or self-care (01) ==
LOC: DI 11:29
PROVIDERS: ATTEND Registered Nurse
DX: I71.41 Pararenal abdominal aortic aneurysm, without rupture (principal); I70.1 Atherosclerosis of renal artery; N20.0 Calculus of kidney; I71.23 Aneurysm of the descending thoracic aorta, without rupture; J84.10 Pulmonary fibrosis, unspecified
CPT/HCPCS: 36415; 71275; 74174; 82565; Q9967